=== PATIENT | female | born 1990 | race Caucasian/White ===

== ENCOUNTER 2018-05-25 14:19 | Emergency (ER) | payer OTHER ==
[~2018-05-25] VITALS: Ht 162.6 cm; Wt 63.5 kg
[2018-05-25] MEDS ORDERED: OBSTETRIX DHA1 EACH (14:32)
== END 2018-05-25 17:32 | disposition home or self-care (01) ==
LOC: ER 14:19
DX: B34.9 Viral infection, unspecified (principal)

== ENCOUNTER 2018-08-31 18:13 | Emergency (ER) | payer OTHER ==
[~2018-08-31] VITALS: Ht 162.6 cm; Wt 69.9 kg
[~2018-08-31 18:13] MED LIST: OBSTETRIX DHA1 EACH
== END 2018-08-31 22:37 | disposition home or self-care (01) ==
LOC: ER 18:13
DX: R04.0 Epistaxis (principal)

== ENCOUNTER 2018-09-21 09:15 | Inpatient (IN) | payer OTHER ==
[~2018-09-21] VITALS: Ht 162.6 cm; Wt 71.7 kg
[2018-10-01] MEDS ORDERED: FERRACTIV IRON1 EACH PO (21:10)
[2018-10-01] MEDS ORDERED: FEROCON CAPSUL1 EACH PO (21:14)
== END 2018-10-04 16:58 | DRG 807 ==
LOC: OB/GYN 10-01 16:31 → LDR 10-01 16:31 → OB/GYN 10-02 08:19
PROC: 3E0P7VZ Introduction of Hormone into Female Reproductive, Via Natural or Artificial Opening (ICD-10-PCS; 2018-10-01)
PROC: 3E033VJ Introduction of Other Hormone into Peripheral Vein, Percutaneous Approach (ICD-10-PCS; 2018-10-01)
PROC: 4A1HXCZ Monitoring of Products of Conception, Cardiac Rate, External Approach (ICD-10-PCS; 2018-10-01)
PROC: 10E0XZZ Delivery of Products of Conception, External Approach (ICD-10-PCS; principal; 2018-10-02)
PROC: 0HQ9XZZ Repair Perineum Skin, External Approach (ICD-10-PCS; 2018-10-02)
DX: O70.0 First degree perineal laceration during delivery (principal); Z37.0 Single live birth; Z3A.39 39 weeks gestation of pregnancy

== ENCOUNTER 2019-10-05 15:11 | Emergency (ER) | payer OTHER ==
[~2019-10-05] VITALS: Ht 167.6 cm; Wt 56.2 kg
[~2019-10-05 15:11] MED LIST changes: +FEROCON CAPSUL1 EACH PO; +FERRACTIV IRON1 EACH PO
== END 2019-10-05 19:13 | disposition home or self-care (01) ==
LOC: ER 15:11
DX: K52.9 Noninfective gastroenteritis and colitis, unspecified (principal); E86.0 Dehydration

== ENCOUNTER → 2021-02-01 | Outpatient (CLI) | payer OTHER | END | disposition home or self-care (01) | LOC: PRENATAL 08:00 | PROVIDERS: ATTEND Obstetrics & Gynecology Maternal & Fetal Medicine | DX: O35.0XX1 Maternal care for (suspected) central nervous system malformation in fetus, fetus 1 (principal); O35.3XX1 Maternal care for (suspected) damage to fetus from viral disease in mother, fetus 1; O98.512 Other viral diseases complicating pregnancy, second trimester; Z36.89 Encounter for other specified antenatal screening; Z3A.20 20 weeks gestation of pregnancy ==

== ENCOUNTER → 2021-04-12 | Outpatient (CLI) | payer OTHER | END | disposition home or self-care (01) | LOC: PRENATAL 08:58 | PROVIDERS: ATTEND Obstetrics & Gynecology Maternal & Fetal Medicine | DX: O26.843 Uterine size-date discrepancy, third trimester (principal); Z36.89 Encounter for other specified antenatal screening; Z3A.31 31 weeks gestation of pregnancy ==

== ENCOUNTER 2021-06-02 13:30 | Inpatient (IN) | payer OTHER ==
[~2021-06-02] VITALS: Ht 162.6 cm; Wt 71.2 kg
[2021-06-07] MEDS ORDERED: IRON325 MG PO (09:46)
[2021-06-07] MEDS ORDERED: PRENATAL CAPLE1 EAC1 PO (09:46)
== END 2021-06-09 12:48 | disposition home or self-care (01) | DRG 807 ==
LOC: LDR 06-07 08:34 → SURG-SUITE 06-07 08:34 → OB/GYN 06-07 13:30 → LDR 06-07 13:49 → SURG-SUITE 06-07 17:23
PROVIDERS: ADMIT Obstetrics & Gynecology; ATTEND Obstetrics & Gynecology
PROC: 10E0XZZ Delivery of Products of Conception, External Approach (ICD-10-PCS; principal; 2021-06-07)
PROC: 0HQ9XZZ Repair Perineum Skin, External Approach (ICD-10-PCS; 2021-06-07)
PROC: 10907ZC Drainage of Amniotic Fluid, Therapeutic from Products of Conception, Via Natural or Artificial Opening (ICD-10-PCS; 2021-06-07)
PROC: 4A1HXFZ Monitoring of Products of Conception, Cardiac Rhythm, External Approach (ICD-10-PCS; 2021-06-07)
DX: O70.0 First degree perineal laceration during delivery (principal); Z37.0 Single live birth; Z3A.39 39 weeks gestation of pregnancy

== ENCOUNTER 2023-09-24 08:57 | Emergency (ER) | payer OTHER ==
[~2023-09-24] VITALS: Ht 160 cm; Wt 57.6 kg
[~2023-09-24 08:57] MED LIST changes: +IRON325 MG PO; +PRENATAL CAPLE1 EAC1 PO
[2023-09-24 10:12] LABS: HEMOGLOBIN 13.1 g/dL (12.0-15.00); MEAN CELL VOLUME 79.7 fL (80.00-100.00); MEAN CORPUSCULAR HEMOGLOBIN 27.5 pg (27.00-32.0); MEAN CORPUSCULAR HGB CONC 34.4 g/dl (32.0-36.0); PLATELET COUNT 272 K/uL (150-450); RED BLOOD COUNT 4.77 M/uL (4.00-6.00); RED CELL DISTRIBUTION WIDTH 13.6 % (11.5-14.5)
[2023-09-24 10:40] LABS: CALCIUM 8.7 mg/dL (8.5-10.1); CREATININE SERUM 0.61 mg/dL (0.55-1.02); GFR 113.66; POTASSIUM 3.98 mEq/L (3.5-5.1)
== END 2023-09-24 14:11 | disposition home or self-care (01) ==
LOC: ER 08:57
PROVIDERS: General Practice
DX: R11.10 Vomiting, unspecified (principal); K52.89 Other specified noninfective gastroenteritis and colitis; E86.0 Dehydration; Z20.822 Contact with and (suspected) exposure to COVID-19